=== PATIENT | female | born 1950 | race Caucasian/White ===

== ENCOUNTER 2021-01-14 13:04 | Outpatient (CLI) | payer OTHER | END 2021-01-14 13:15 | disposition home or self-care (01) | LOC: RAD 13:04 | PROVIDERS: ATTEND Orthopaedic Surgery | DX: M25.561 Pain in right knee (principal); M25.562 Pain in left knee ==

== ENCOUNTER → 2021-04-30 | Outpatient (CLI) | payer OTHER ==
[~2021-04-30] MED LIST: ARNUITY ELLIPT50 MCG; CLONAZEPAM0.5 MG PO; COZAAR50 MG PO; CRESTOR10 MG PO; FLUTI IH; MULTI VITAMIN1 EACH; MULTIVI PO; OMEPRAZOLE PO; OMEPRAZOLE40 MG; SINGULAIR10 MG PO; SYMB IH; SYMBICORT 16010.2 GM; VENLAFAXINE HCL75 MG PO
== END | disposition home or self-care (01) ==
LOC: NUCLEAR 10:00
PROVIDERS: ATTEND Internal Medicine Hematology & Oncology
DX: C50.812 Malignant neoplasm of overlapping sites of left female breast (principal)

== ENCOUNTER 2021-05-21 09:15 | Inpatient (IN) | payer OTHER ==
[~2021-05-21] VITALS: Ht 149.9 cm; Wt 86.2 kg
[2021-05-21] MEDS ORDERED: VENLAFAXINE HCL75 MG PO (13:58)
[2021-05-21] MEDS ORDERED: COZAAR50 MG PO (13:59)
[2021-05-21] MEDS ORDERED: CRESTOR10 MG PO (13:59)
[2021-05-21] MEDS ORDERED: CLONAZEPAM0.5 MG PO (13:59)
[2021-05-21] MEDS ORDERED: SINGULAIR10 MG PO (14:00)
[2021-05-21] MEDS ORDERED: OMEPRAZOLE PO (14:00)
[2021-05-21] MEDS ORDERED: SYMB IH (14:01)
[2021-05-21] MEDS ORDERED: MULTIVI PO (14:01)
[2021-05-21] MEDS ORDERED: FLUTI IH (14:02)
[2021-05-27] MEDS ORDERED: MULTI VITAMIN1 EACH (07:58)
[2021-05-27] MEDS ORDERED: OMEPRAZOLE40 MG (07:58)
[2021-05-27] MEDS ORDERED: SYMBICORT 16010.2 GM (07:59)
[2021-05-27] MEDS ORDERED: ARNUITY ELLIPT50 MCG (08:01)
== END 2021-05-29 19:09 | DRG 470 ==
LOC: O/R 05-27 06:40 → SURG 05-27 06:40 → SURH 05-27 09:15 → O/R 05-27 13:06 → SURG 05-27 13:18
PROVIDERS: ADMIT Orthopaedic Surgery; ATTEND Orthopaedic Surgery
PROC: 0SRC0J9 Replacement of Right Knee Joint with Synthetic Substitute, Cemented, Open Approach (ICD-10-PCS; principal; 2021-05-27 13:00)
DX: M17.11 Unilateral primary osteoarthritis, right knee (principal); I10 Essential (primary) hypertension; M85.861 Other specified disorders of bone density and structure, right lower leg

== ENCOUNTER 2021-09-11 11:28 | Outpatient (CLI) | payer OTHER | END 2021-09-11 11:33 | disposition home or self-care (01) | LOC: RAD 11:28 | PROVIDERS: ATTEND Orthopaedic Surgery | DX: S93.492A Sprain of other ligament of left ankle, initial encounter (principal); M25.561 Pain in right knee; M25.562 Pain in left knee ==

== ENCOUNTER 2022-03-18 07:48 | Outpatient (CLI) | payer OTHER | END 2022-03-18 08:22 | disposition home or self-care (01) | LOC: MRI 07:48 | PROVIDERS: ATTEND Orthopaedic Surgery | DX: M72.2 Plantar fascial fibromatosis (principal); M25.571 Pain in right ankle and joints of right foot; M25.572 Pain in left ankle and joints of left foot; M25.561 Pain in right knee; M25.562 Pain in left knee; N60.11 Diffuse cystic mastopathy of right breast; N60.12 Diffuse cystic mastopathy of left breast | CPT/HCPCS: 73721 ==

== ENCOUNTER → 2022-03-18 | Outpatient (CLI) | payer OTHER | END | disposition home or self-care (01) | LOC: NUCLEAR 03-11 13:30 | PROVIDERS: ATTEND Family Medicine | DX: M85.80 Other specified disorders of bone density and structure, unspecified site (principal) ==

== ENCOUNTER 2023-08-26 14:05 | Outpatient (CLI) | payer OTHER | END 2023-08-26 14:07 | disposition home or self-care (01) | LOC: RAD 14:05 | PROVIDERS: ATTEND Orthopaedic Surgery Adult Reconstructive Orthopaedic Surgery | DX: M17.12 Unilateral primary osteoarthritis, left knee (principal); Z96.651 Presence of right artificial knee joint ==

== ENCOUNTER 2024-07-11 11:21 | Outpatient (CLI) | payer OTHER | END 2024-07-11 11:22 | disposition home or self-care (01) | LOC: NUCLEAR 11:21 | PROVIDERS: ATTEND Family Medicine | DX: M85.80 Other specified disorders of bone density and structure, unspecified site (principal); M81.0 Age-related osteoporosis without current pathological fracture ==

== ENCOUNTER 2024-07-11 11:52 | Outpatient (CLI) | payer OTHER | END 2024-07-11 12:00 | disposition home or self-care (01) | LOC: MAMO-SONO 11:52 | PROVIDERS: ATTEND Family Medicine | DX: N60.11 Diffuse cystic mastopathy of right breast (principal); N60.12 Diffuse cystic mastopathy of left breast ==